=== PATIENT | male | born 1950 ===

== ENCOUNTER 2020-10-23 11:26 | Emergency (ER) | payer MEDICARE, OTHER ==
--- NOTE | 2020-10-23 11:53 | EDM.PDOC ---
ED HPI GENERAL MEDICAL PROBLEM - General Chief Complaint: General Stated Complaint: FISH HOOK IN UPPER LIP Time Seen by Provider: 10/23/20 11:30 Source of Information: Reports: Patient History Limitations: Reports: No Limitations - History of Present Illness INITIAL COMMENTS - FREE TEXT/NARRATIVE: 70 year old male presents to ED with a fish hook in his upper lip. Unknown tetanus status. No pain or bleeding. Denies any cough, fever, CP, SOB. - Related Data Allergies Allergy/AdvReac Type Severity Reaction Status Date / Time No Known Allergies Allergy Verified 10/23/20 11:47 Home Meds: Home Meds NK [No Known Home Meds] 10/23/20 [History] ED ROS GENERAL - Review of Systems Review Of Systems: See Below Constitutional: Reports: No Symptoms HEENT: Reports: Other (fish hook in upper lip) Respiratory: Reports: No Symptoms Cardiovascular: Reports: No Symptoms Endocrine: Reports: No Symptoms GI/Abdominal: Reports: No Symptoms : Reports: No Symptoms Musculoskeletal: Reports: No Symptoms Skin: Reports: Wound Neurological: Reports: No Symptoms Psychiatric: Reports: No Symptoms ED EXAM, GENERAL - Physical Exam Exam: See Below Exam Limited By: No Limitations General Appearance: Alert, No Apparent Distress Ears: Normal External Exam, Hearing Grossly Normal Nose: Normal Inspection, No Blood Throat/Mouth: Normal Inspection, Normal Teeth, Normal Gums, Normal Oropharynx, Normal Voice, No Airway Compromise, Other (fish hook in upper lip) Head: Atraumatic Neck: Normal Inspection, Non-Tender, Full Range of Motion Respiratory/Chest: No Respiratory Distress Cardiovascular: Regular Rate, Rhythm Back Exam: Full Range of Motion Extremities: Normal Range of Motion, Non-Tender, No Pedal Edema Neurological: Alert, Oriented, Normal Cognition, Normal Gait, No Motor/Sensory Deficits Psychiatric: Normal Affect, Normal Mood Skin Exam: Warm, Dry, Normal Color, No Rash Lymphatic: No Adenopathy Departure - Departure Time of Disposition: 11:48 Disposition: Admitted As Inpatient 66 Condition: Good Clinical Impression: Foreign body (FB) in soft tissue - Discharge Information *PRESCRIPTION DRUG MONITORING PROGRAM REVIEWED*: Not Applicable *COPY OF PRESCRIPTION DRUG MONITORING REPORT IN PATIENT JOSE: Not Applicable Additional Instructions: watch for signs of infection. Return to ED for any increased or new concerning symptoms. - Assessment/Plan Plan: Patient verbalized understanding of DC instructions and all questions were answered prior to DC.
[2020-10-23] MEDS: Diphtheria,Pertussis(Acell),Tetanus Vaccine 0.5 ML SDV IM ONE (11:56)
--- NOTE | 2020-10-23 11:58 | PCM.SN.2 ---
- Free Text/Narrative Note: Area was anesthetized using 1ccof 1% lidocaine. Fish hook was easily removed using string. Patient tolerated well.
== END 2020-10-23 12:05 | disposition home or self-care (01) ==
LOC: LB.ED 11:26
DX: S00.551A Superficial foreign body of lip, initial encounter (principal); Z23 Encounter for immunization; W45.8XXA Other foreign body or object entering through skin, initial encounter
CPT/HCPCS: 90471; 90715; 99283